=== PATIENT | male | born 1935 | race Caucasian/White ===

== ENCOUNTER 2016-07-28 11:08 | Day surgery (SDC) | payer MEDICARE ==
[2016-07-28] VITALS (11 sets, daily range): BP systolic 100–160; BP diastolic 52–89; PULSE 62–91; TEMP 97.9–98.4
[~2016-07-28] VITALS: Ht 182.9 cm; Wt 81.8 kg
[~2016-07-28 11:08] MED LIST: ATARAX 25MG25 MG/TAB PO; BEPREVE15 MG/ML OU; CLARITIN 1010 MG/TAB PO; CRESTOR5 MG PO; CYMBALTA 30MG30 MG PO; HYTRIN 2MG CAPSU2 MG PO; LIORESAL 1010 MG/TAB PO; LOTRIMIN1% TP; NIZORAL A-D 20200 ML TP; NIZORAL SHAMPO120 M1 TP; NORCO 325 MG-51 TAB PO; PATADAY 2.5 ML2.5 ML OU; PROSVENT; PROSVENT PO; PYRIDIUM 100MG100 MG PO; SARNA ANTI-ITC222 ML TP; SENOKOT S 50 MG1 TAB PO; TRIAMCINOLONE0.1% TOP; TYLENOL 325MG325 MG PO; ZYRTEC 10MG10 MG PO; [UNRECOGNIZED DRUG - REMARK] PO
[2016-07-28] MEDS ORDERED: SYNTHROID0.1 MG/TAB PO (12:17)
[2016-07-28] MEDS ORDERED: CARDIZEM120 MG PO (12:17)
[2016-07-28] MEDS ORDERED: BEPREVE OU (12:18)
[2016-07-28] MEDS ORDERED: SARNA 0.5%-0.5222 ML TP (12:19)
[2016-07-28] MEDS ORDERED: NIZORAL CREAM15 GM TP (12:19)
[2016-07-28] MEDS ORDERED: TESSALON P100 MG/CAP PO (12:19)
[2016-07-28] MEDS ORDERED: DIGITEK0.125 MG PO (12:20)
[2016-07-28] MEDS ORDERED: IPRATROPIUM BROM3 M1 IH (12:20)
[2016-07-28] MEDS ORDERED: PULMICORT0.5 MG/2 M IH (12:21)
[2016-07-28] MEDS ORDERED: [UNRECOGNIZED DRUG - OTHER] PO (12:23)
[2016-07-28] MEDS ORDERED: CETAPHIL1 CRE TP (12:24)
[2016-07-28] MEDS ORDERED: CHERATUSSIN AC120 ML PO (12:24)
[2016-07-28] MEDS ORDERED: CARDIZEM CD 12120 MG PO (15:45)
[2016-07-29] VITALS (7 sets, daily range): BP systolic 113–145; BP diastolic 60–91; PULSE 48–108; TEMP 98.5–99
[2016-07-30 02:20] VITALS: BP 142/84; PULSE 95; TEMP 98.5
[2016-07-30 05:42] VITALS: BP 140/69; PULSE 86; TEMP 99.6
[2016-07-30 09:45] VITALS: BP 154/82; PULSE 97; TEMP 98
[2016-07-30 14:08] VITALS: BP 105/82; PULSE 78; TEMP 98.2
== END 2016-07-30 17:59 | disposition home or self-care (01) ==
LOC: SDCO 11:08 → SURG 15:14 → SDCO 07-30 17:59
DX: N42.89 Other specified disorders of prostate (principal); Z85.51 Personal history of malignant neoplasm of bladder
CPT/HCPCS: OP; J0690; J2250; J2370; J2704; J3010

== ENCOUNTER 2017-12-27 13:04 | Observation (INO) | payer MEDICARE ==
[2017-12-27] VITALS (7 sets, daily range): BP systolic 103–128; BP diastolic 48–72; PULSE 69–100; TEMP 98–98.4
[~2017-12-27] VITALS: Ht 182.9 cm; Wt 69.6 kg
[~2017-12-27 13:04] MED LIST changes: +BEPREVE OU; +CARDIZEM CD 12120 MG PO; +CARDIZEM120 MG PO; +CETAPHIL1 CRE TP; +CHERATUSSIN AC120 ML PO; +DIGITEK0.125 MG PO; +IPRATROPIUM BROM3 M1 IH; +NIZORAL CREAM15 GM TP; +PULMICORT0.5 MG/2 M IH; +SARNA 0.5%-0.5222 ML TP; +SYNTHROID0.1 MG/TAB PO; +TESSALON P100 MG/CAP PO; +[UNRECOGNIZED DRUG - OTHER] PO
[2017-12-27] MEDS ORDERED: CLARITIN 1010 MG/TAB PO (14:50)
[2017-12-27] MEDS ORDERED: LANOXIN 0.120.125 MG PO (14:53)
[2017-12-27] MEDS ORDERED: CARDIZEM CD 18180 MG PO (14:56)
[2017-12-27] MEDS ORDERED: GLUCOPHAGE500 MG/TAB PO (15:02)
[2017-12-27] MEDS ORDERED: ZYRTEC 10MG10 MG PO (15:03)
[2017-12-27] MEDS ORDERED: HYTRIN 2MG CAPSU2 MG PO (15:03)
[2017-12-27] MEDS ORDERED: ZOCOR 10MG10 MG PO (15:04)
[2017-12-27] MEDS ORDERED: LIORESAL 1010 MG/TAB PO (15:05)
[2017-12-27] MEDS ORDERED: MUCINEX 60600 MG/TA1 PO (15:06)
[2017-12-27] MEDS ORDERED: [UNRECOGNIZED DRUG - OTHER] PO (15:10)
[2017-12-27] MEDS ORDERED: IPRATROPIUM BROM3 M1 IH (15:11)
[2017-12-28 00:03] VITALS: BP 114/67; PULSE 88; TEMP 98.4
[2017-12-28 03:52] VITALS: BP 107/57; PULSE 94; TEMP 98.6
[2017-12-28 07:46] VITALS: BP 127/58; PULSE 93; TEMP 97.7
[2017-12-28 12:04] VITALS: BP 115/60; PULSE 73; TEMP 98.6
[2017-12-28] MEDS ORDERED: PYRIDIUM 100MG100 MG PO (13:49)
[2017-12-28] MEDS ORDERED: CIPRO 500MG TA500 MG PO (13:49)
== END 2017-12-28 14:48 | disposition home health service (06) ==
LOC: SDCO 13:04 → SURG 17:55 → SDCO 17:56 → SURG 12-28 14:48
DX: C68.0 Malignant neoplasm of urethra (principal); C61 Malignant neoplasm of prostate; Z85.51 Personal history of malignant neoplasm of bladder; E11.9 Type 2 diabetes mellitus without complications; Z79.84 Long term (current) use of oral hypoglycemic drugs; I48.2 Chronic atrial fibrillation; Z87.891 Personal history of nicotine dependence; J44.9 Chronic obstructive pulmonary disease, unspecified; I10 Essential (primary) hypertension; I69.354 Hemiplegia and hemiparesis following cerebral infarction affecting left non-dominant side; I69.398 Other sequelae of cerebral infarction; N40.0 Benign prostatic hyperplasia without lower urinary tract symptoms; Z79.899 Other long term (current) drug therapy; Z83.3 Family history of diabetes mellitus; E07.9 Disorder of thyroid, unspecified
CPT/HCPCS: OP; G0378; J0690; J1100; J1815; J2270; J2405; J2704; J3010; J7030

== ENCOUNTER 2019-12-25 17:30 | Emergency (ER) | payer MEDICARE ==
[~2019-12-25] VITALS: Ht 182.9 cm; Wt 68.2 kg
[~2019-12-25 17:30] MED LIST changes: +CARDIZEM CD 18180 MG PO; +CIPRO 500MG TA500 MG PO; +GLUCOPHAGE500 MG/TAB PO; +LANOXIN 0.120.125 MG PO; +MUCINEX 60600 MG/TA1 PO; +ZOCOR 10MG10 MG PO; +[UNRECOGNIZED DRUG - OTHER] PO
[2019-12-25 17:48] VITALS: TEMP 98.2
[2019-12-25 19:45] VITALS: BP 116/67; PULSE 56
== END 2019-12-25 19:45 | disposition home or self-care (01) ==
LOC: COL.ER 17:30
DX: C68.0 Malignant neoplasm of urethra (principal); Z87.891 Personal history of nicotine dependence; Z88.2 Allergy status to sulfonamides; Z79.890 Hormone replacement therapy; Z79.84 Long term (current) use of oral hypoglycemic drugs